=== PATIENT | female | born 1995 | race Caucasian/White ===

== ENCOUNTER → 2017-04-01 | Outpatient (CLI) | payer BC ==
[2017-04-01 20:01] LABS: MEAN CORPUSCULAR HGB CONC 35.2 g/dl (32.0-36.5); MEAN CORPUSCULAR VOLUME 93.9 fl (80.0-96.0); PLATELET COUNT, AUTOMATED 244 10^3/uL (150-450); RED CELL DISTRIBUTION WIDTH 11.7 % (11.5-14.5); WHITE BLOOD COUNT 8.1 10^3/uL (4.0-10.0)
[2017-04-01 20:20] LABS: ALBUMIN 4.1 GM/DL (3.2-5.2); ALBUMIN/GLOBULIN RATIO 1.32 (1.00-1.93); ALKALINE PHOSPHATASE 56 U/L (45-117); ALT/SGPT 34 U/L (12-78); ANION GAP 8 MEQ/L (8-16); AST/SGOT 14 U/L (7-37); BILIRUBIN,TOTAL 0.4 MG/DL (0.2-1.0); BLOOD UREA NITROGEN 14 MG/DL (7-18); CALCIUM LEVEL 8.6 MG/DL (8.5-10.1); CARBON DIOXIDE LEVEL 29 MEQ/L (21-32); CHLORIDE LEVEL 105 MEQ/L (98-107); CREATININE FOR GFR 0.73 MG/DL (0.55-1.02); FREE T4 1.12 NG/DL (0.76-1.46); GLOMERULAR FILTRATION RATE > 60.0 (>60); GLUCOSE, FASTING 134 MG/DL (70-105); POTASSIUM SERUM 4.2 MEQ/L (3.5-5.1); SODIUM LEVEL 142 MEQ/L (136-145); TOTAL PROTEIN 7.2 GM/DL (6.4-8.2)
== END ==
LOC: M SMT 14:32
PROVIDERS: ATTEND Physician Assistant Medical
DX: F41.1 Generalized anxiety disorder (principal); Z13.1 Encounter for screening for diabetes mellitus; R53.83 Other fatigue

== ENCOUNTER → 2017-04-11 | Outpatient (CLI) | payer BC ==
[2017-04-11 19:31] LABS: THYROID PEROXIDASE ANTIBODY > 1300.0 U/ML (<60.0)
[2017-04-11 19:35] LABS: FREE T4 1.15 NG/DL (0.76-1.46)
== END ==
LOC: M SMT 12:13
PROVIDERS: ATTEND Physician Assistant Medical
DX: R94.6 Abnormal results of thyroid function studies (principal)

== ENCOUNTER 2017-04-19 09:58 | Outpatient (CLI) | payer BC | END 2017-05-30 | LOC: M RAD 09:58 | DX: E03.9 Hypothyroidism, unspecified (principal) | CPT/HCPCS: A9516 ==

== ENCOUNTER → 2017-05-19 | Outpatient (CLI) | payer BC ==
[2017-05-19 19:13] LABS: FREE T4 0.69 NG/DL (0.76-1.46)
== END ==
LOC: M SMT 13:13
DX: R94.6 Abnormal results of thyroid function studies (principal)
CPT/HCPCS: 84443

== ENCOUNTER → 2017-06-01 | Outpatient (CLI) | payer BC ==
[2017-06-01 14:07] LABS: FREE T4 0.67 NG/DL (0.76-1.46)
== END ==
LOC: M SMT 12:03
DX: E06.0 Acute thyroiditis (principal)
CPT/HCPCS: 84443

== ENCOUNTER → 2017-06-27 | Outpatient (CLI) | payer BC ==
[2017-06-27 21:21] LABS: FREE T4 0.78 NG/DL (0.76-1.46)
== END ==
LOC: M LAB 19:49
DX: E06.0 Acute thyroiditis (principal)
CPT/HCPCS: 84443

== ENCOUNTER 2017-07-10 21:02 | Emergency (ER) | payer BC ==
[2017-07-10 23:28] LABS: VENOUS BASE EXCESS -3.3 (-2.0-2.0); VENOUS O2 SATURATION 99.3 % (60.0-80.0); VENOUS PARTIAL PRESSURE CO2 31.6 mmHg (38.0-50.0); VENOUS PARTIAL PRESSURE O2 185.8 mmHg (30.0-50.0)
[2017-07-10 23:32] LABS: BASO % 0.4 % (0.0-1.0); EOS # 0.1 10^3/uL (0.0-0.50); EOS % 0.5 % (0.0-3.0); HEMATOCRIT 39.6 % (36.0-47.0); HEMOGLOBIN 14.2 g/dl (12.0-16.0); IMMATURE GRANULOCYTE % 0.1 % (0-3.0); LYMPH # 3.3 10^3/uL (1.5-6.5); LYMPH % 35.5 % (24.0-44.0); MEAN CORPUSCULAR HEMOGLOBIN 32.1 pg (27.0-33.0); MEAN CORPUSCULAR HGB CONC 35.9 g/dl (32.0-36.5); MEAN CORPUSCULAR VOLUME 89.6 fl (80.0-96.0); MONO # 0.6 10^3/uL (0.0-0.8); MONO % 6.1 % (0.0-5.0); NEUTROPHILS # 5.3 10^3/uL (1.8-7.7); NEUTROPHILS % 57.4 % (36.0-66.0); PLATELET COUNT, AUTOMATED 244 10^3/uL (150-450); RED BLOOD COUNT 4.42 10^6/uL (4.00-5.40); RED CELL DISTRIBUTION WIDTH 12.1 % (11.5-14.5); WHITE BLOOD COUNT 9.3 10^3/uL (4.0-10.0)
[2017-07-10 23:44] LABS: INR 0.91; PROTHROMBIN TIME 12.3 SECONDS (12.4-14.5)
[2017-07-10 23:45] LABS: PARTIAL THROMBOPLASTIN TIME 26.8 SECONDS (26.8-37.9)
[2017-07-10] MEDS: MORPHINE 4 MG/ML 1ML VIAL (J2270) IV (23:45)
[2017-07-10] MEDS: NS 1,000 ML IV (23:45)
[2017-07-10 23:47] LABS: D-DIMER QUANT 277.4 ng/ml (<500)
[2017-07-11 00:22] LABS: ALBUMIN 4.3 GM/DL (3.2-5.2); ALBUMIN/GLOBULIN RATIO 1.43 (1.00-1.93); ALKALINE PHOSPHATASE 63 U/L (45-117); ALT/SGPT 20 U/L (12-78); ANION GAP 8 MEQ/L (8-16); AST/SGOT 19 U/L (7-37); BILIRUBIN,DIRECT 0.1 MG/DL (0.0-0.2); BILIRUBIN,TOTAL 0.3 MG/DL (0.2-1.0); BLOOD UREA NITROGEN 11 MG/DL (7-18); C REACTIVE PROTEIN QUANTITATIV < 0.30 MG/DL (0.00-0.30); CALCIUM LEVEL 8.8 MG/DL (8.5-10.1); CARBON DIOXIDE LEVEL 24 MEQ/L (21-32); CHLORIDE LEVEL 110 MEQ/L (98-107); CREATININE FOR GFR 0.73 MG/DL (0.55-1.30); FREE T4 0.75 NG/DL (0.76-1.46); GLOMERULAR FILTRATION RATE > 60.0 (>60); GLUCOSE, FASTING 96 MG/DL (70-100); LIPASE 143 U/L (73-393); POTASSIUM SERUM 3.8 MEQ/L (3.5-5.1); SODIUM LEVEL 142 MEQ/L (136-145); TOTAL PROTEIN 7.3 GM/DL (6.4-8.2)
[2017-07-11] MEDS ORDERED: METAL LOCK LOOP XX (00:47)
== END 2017-07-11 00:57 | disposition home or self-care (01) ==
LOC: M ED 07-11 00:57
DX: R07.89 Other chest pain (principal); E03.9 Hypothyroidism, unspecified; F41.9 Anxiety disorder, unspecified; F33.9 Major depressive disorder, recurrent, unspecified; Z82.49 Family history of ischemic heart disease and other diseases of the circulatory system; Z79.899 Other long term (current) drug therapy; Z87.891 Personal history of nicotine dependence
CPT/HCPCS: J2270

== ENCOUNTER → 2017-08-01 | Outpatient (CLI) | payer BC ==
[2017-08-01 20:07] LABS: FREE T4 0.89 NG/DL (0.76-1.46)
== END ==
LOC: M LAB 18:30
DX: E06.3 Autoimmune thyroiditis (principal)

== ENCOUNTER → 2017-10-05 | Outpatient (CLI) | payer BC ==
[2017-10-05 18:45] LABS: FREE T4 0.85 NG/DL (0.76-1.46)
== END ==
LOC: M SMT 13:10
DX: E06.3 Autoimmune thyroiditis (principal)

== ENCOUNTER → 2017-11-10 | Outpatient (REF) | payer BC | LOC: M LAB REF 18:26 | DX: L72.12 Trichodermal cyst (principal) | CPT/HCPCS: 88304 ==

== ENCOUNTER → 2018-02-08 | Outpatient (CLI) | payer BC ==
[2018-02-08 13:45] LABS: BASO % 0.4 % (0.0-1.0); EOS # 0.1 10^3/uL (0.0-0.50); HEMATOCRIT 43.2 % (36.0-47.0); HEMOGLOBIN 14.9 g/dl (12.0-15.5); IMMATURE GRANULOCYTE % 0.3 % (0-3.0); LYMPH # 2.2 10^3/uL (1.5-6.5); LYMPH % 31.3 % (24.0-44.0); MEAN CORPUSCULAR HEMOGLOBIN 32.3 pg (27.0-33.0); MEAN CORPUSCULAR HGB CONC 34.5 g/dl (32.0-36.5); MEAN CORPUSCULAR VOLUME 93.7 fl (80.0-96.0); MONO # 0.5 10^3/uL (0.0-0.8); MONO % 7.1 % (0.0-5.0); NEUTROPHILS # 4.1 10^3/uL (1.8-7.7); NEUTROPHILS % 59.9 % (36.0-66.0); PLATELET COUNT, AUTOMATED 239 10^3/uL (150-450); RED BLOOD COUNT 4.61 10^6/uL (4.00-5.40); RED CELL DISTRIBUTION WIDTH 12.4 % (11.5-14.5); WHITE BLOOD COUNT 6.9 10^3/uL (4.0-10.0)
[2018-02-08 15:12] LABS: TOTAL 25(OH) VITAMIN D 16.1 NG/ML (30.0-100.0)
== END ==
LOC: M SMT 10:25
DX: E06.3 Autoimmune thyroiditis (principal); R53.83 Other fatigue
CPT/HCPCS: 84443

== ENCOUNTER → 2018-03-09 | Outpatient (CLI) | payer BC | LOC: M RAD 07:36 | DX: R10.11 Right upper quadrant pain (principal) | CPT/HCPCS: 76705 ==

== ENCOUNTER → 2018-03-10 | Outpatient (CLI) | payer BC ==
[2018-03-10 13:56] LABS: BASO % 0.4 % (0.0-1.0); EOS # 0.1 10^3/uL (0.0-0.50); EOS % 0.7 % (0.0-3.0); HEMATOCRIT 43.2 % (36.0-47.0); HEMOGLOBIN 15.1 g/dl (12.0-15.5); IMMATURE GRANULOCYTE % 0.3 % (0-3.0); LYMPH # 2.3 10^3/uL (1.5-6.5); LYMPH % 33.1 % (24.0-44.0); MEAN CORPUSCULAR HEMOGLOBIN 32.5 pg (27.0-33.0); MEAN CORPUSCULAR VOLUME 92.9 fl (80.0-96.0); MONO # 0.5 10^3/uL (0.0-0.8); MONO % 7.6 % (0.0-5.0); NEUTROPHILS % 57.9 % (36.0-66.0); PLATELET COUNT, AUTOMATED 237 10^3/uL (150-450); RED BLOOD COUNT 4.65 10^6/uL (4.00-5.40); RED CELL DISTRIBUTION WIDTH 11.9 % (11.5-14.5)
[2018-03-10 15:29] LABS: ALBUMIN 4.3 GM/DL (3.2-5.2); ALBUMIN/GLOBULIN RATIO 1.43 (1.00-1.93); ALKALINE PHOSPHATASE 58 U/L (45-117); ALT/SGPT 28 U/L (12-78); AMYLASE 45 U/L (25-115); ANION GAP 8 MEQ/L (8-16); AST/SGOT 18 U/L (7-37); BILIRUBIN,TOTAL 0.5 MG/DL (0.2-1.0); BLOOD UREA NITROGEN 13 MG/DL (7-18); CARBON DIOXIDE LEVEL 27 MEQ/L (21-32); CHLORIDE LEVEL 104 MEQ/L (98-107); CREATININE FOR GFR 0.67 MG/DL (0.55-1.30); GLOMERULAR FILTRATION RATE > 60.0 (>60); GLUCOSE, FASTING 82 MG/DL (70-100); LIPASE 126 U/L (73-393); POTASSIUM SERUM 4.4 MEQ/L (3.5-5.1); SODIUM LEVEL 139 MEQ/L (136-145); TOTAL PROTEIN 7.3 GM/DL (6.4-8.2)
== END ==
LOC: M SMT 10:32
DX: R10.11 Right upper quadrant pain (principal)
CPT/HCPCS: 82150

== ENCOUNTER 2018-06-12 18:55 | Emergency (ER) | payer BC ==
[~2018-06-12] VITALS: Ht 152.4 cm; Wt 63.6 kg
[~2018-06-12 18:55] MED LIST: SERT-155; SERT25TA88; TRAZ-160
[2018-06-12] MEDS ORDERED: PRENMIS3 PO (19:16)
[2018-06-12] MEDS ORDERED: NS 1,000 ML IV ONE (19:30)
[2018-06-12 19:57] LABS: BASO % 0.3 % (0.0-1.0); EOS % 0.1 % (0.0-3.0); HEMATOCRIT 39.8 % (36.0-47.0); HEMOGLOBIN 14.1 g/dl (12.0-15.5); LYMPH # 3.1 10^3/uL (1.5-6.5); LYMPH % 27.2 % (24.0-44.0); MEAN CORPUSCULAR HEMOGLOBIN 32.8 pg (27.0-33.0); MEAN CORPUSCULAR HGB CONC 35.4 g/dl (32.0-36.5); MEAN CORPUSCULAR VOLUME 92.6 fl (80.0-96.0); MONO # 0.5 10^3/uL (0.0-0.8); MONO % 4.3 % (0.0-5.0); NEUTROPHILS # 7.8 10^3/uL (1.8-7.7); NEUTROPHILS % 67.8 % (36.0-66.0); PLATELET COUNT, AUTOMATED 225 10^3/uL (150-450); WHITE BLOOD COUNT 11.5 10^3/uL (4.0-10.0)
--- NOTE | 2018-06-12 21:10 | REPVR ---
EXAM: US First Trimester, Transabdominal EXAM DATE/TIME: 06/12/2018 8:17 PM CLINICAL HISTORY: 23 years old, female; Signs and symptoms; Lmp or gestational age (in weeks): 13; Antepartum complications; Bleeding; ; Additional info: Vag bleeding, 13wks preg TECHNIQUE: Real-time transabdominal obstetrical ultrasound of the maternal pelvis and a first trimester , less than 14 weeks 0 days, with image documentation. COMPARISON: Pelvis, limited US 05/11/2013 4:42 PM FINDINGS: GESTATION: Gestation: Single intrauterine fetus. Heart rate: heart rate of 149 beats per minute and motion is observed. Placenta: Small subchorionic hemorrhage measuring 17 x 38 x 16 mm on the left. Anterior placenta. Amniotic fluid: Amniotic and chorionic fluid are normal for gestational age. BIOMETRY: [place]-Rump length: [place]-rump length of 6.8 cm suggesting an age of 13 weeks 0 days. The EDC is 12/18/2018. MATERNAL: Uterus: The uterus measures 13.5 cm in its cephalocaudad dimension and 8.7 x 9.3 cm in its AP and lateral dimensions. Cervix: Unremarkable. Right adnexa: Unremarkable. Left adnexa: Unremarkable. Intraperitoneal: No intraperitoneal free fluid. IMPRESSION: 1. Single live intrauterine fetus with estimated age of 13 weeks 0 days. The EDC is 12/18/2018. 2. Small subchorionic hemorrhage on the left measuring 17 x 38 x 16 mm. Electronically signed by: Dalton Kapoor On 06/12/2018 21:10:05 PM
[2018-06-12 21:22] VITALS: BP 117/70
== END 2018-06-12 21:30 | disposition home or self-care (01) ==
LOC: M ED 18:55
DX: O20.8 Other hemorrhage in early pregnancy (principal); Z3A.13 13 weeks gestation of pregnancy; Z79.899 Other long term (current) drug therapy

== ENCOUNTER → 2018-06-22 | Outpatient (CLI) | payer BC ==
[~2018-06-22] MED LIST changes: +PRENMIS3 PO
[2018-06-22 13:40] LABS: BASO % 0.3 % (0.0-1.0); EOS % 0.1 % (0.0-3.0); HEMATOCRIT 38.3 % (36.0-47.0); HEMOGLOBIN 13.7 g/dl (12.0-15.5); LYMPH # 1.8 10^3/uL (1.5-6.5); LYMPH % 19.8 % (24.0-44.0); MEAN CORPUSCULAR HEMOGLOBIN 32.5 pg (27.0-33.0); MEAN CORPUSCULAR HGB CONC 35.8 g/dl (32.0-36.5); MEAN CORPUSCULAR VOLUME 90.8 fl (80.0-96.0); MONO # 0.4 10^3/uL (0.0-0.8); MONO % 4.6 % (0.0-5.0); NEUTROPHILS # 6.9 10^3/uL (1.8-7.7); NEUTROPHILS % 74.9 % (36.0-66.0); PLATELET COUNT, AUTOMATED 225 10^3/uL (150-450); RED BLOOD COUNT 4.22 10^6/uL (4.00-5.40); WHITE BLOOD COUNT 9.2 10^3/uL (4.0-10.0)
[2018-06-22 13:55] LABS: FREE T4 1.22 NG/DL (0.76-1.46)
[2018-06-22 14:47] LABS: CHLAMYDIA DNA AMPLIFICATION NEGATIVE (NEGATIVE); GC DNA AMPLIFICATION NEGATIVE (NEGATIVE)
[2018-06-23 13:03] LABS: RUBELLA IgG QUALITATIVE IMMUNE (IMMUNE)
[2018-06-23 13:32] LABS: HIV 1&2 SCREEN CENTAUR NEGATIVE (NEGATIVE)
== END ==
LOC: M SMT 11:17
PROVIDERS: ATTEND Advanced Practice Midwife
DX: Z34.82 Encounter for supervision of other normal pregnancy, second trimester (principal); Z36.89 Encounter for other specified antenatal screening

== ENCOUNTER → 2018-07-17 | Outpatient (CLI) | payer BC ==
--- NOTE | 2018-07-17 19:18 | REP ---
Clinical: Anatomical evaluation. Comparison: 06/12/2018. Findings: Examination demonstrates a single live intrauterine in cephalic presentation. motion is identified by technologist. Placenta is noted right fundal and grade 1. There is a triangular echogenic focus which covers the cervical os which is of uncertain significance but possibilities include debris/particulate matter as well as possible placental tissue. Amniotic fluid volume is normal. Cervix measures 5.1 cm in length and appears closed. No evidence for nuchal cord. Gestational age by LMP 18 weeks 4 days with MILAGRO 12/14/2018 . Gestational age by current measurements 18 weeks 2 days with MILAGRO 12/16/2018 . FHR equals 139 beats per minute. BPD 4.4 cm 19 weeks 2 days HC 15.4 cm 18 weeks 2 days AC 12.7 cm 18 weeks 2 days FL 2.7 cm 18 weeks 0-day HL 2.9 cm 19 weeks 2 days HC/AC ratio 1.21 Estimated weight 229 grams ( 32nd percentile). Anatomical assessment demonstrates normal structures including cranium, choroid plexus, cavum, cerebellum/posterior fossa, facial features, lungs, four-chamber heart, diaphragm, stomach, cord insertion/three-vessel cord, kidneys/bladder, and upper extremities. Limited evaluation of the cardiac ventricular outflow tracts, spine, and lower extremities. Impression: 1. Single live intrauterine in cephalic presentation demonstrating appropriate interval growth. 2. Echogenic focus overlying the close cervical os as noted above. Differential diagnosis must include placental tissue and warrants reevaluation. 3. Anatomical limitations as noted above warrant reevaluation. Electronically Signed by Nabeel Damon MD 07/17/2018 07:09 P
== END ==
LOC: M SMT 07:59
PROVIDERS: ATTEND Advanced Practice Midwife
DX: Z36.89 Encounter for other specified antenatal screening (principal); Z3A.18 18 weeks gestation of pregnancy

== ENCOUNTER → 2018-08-10 | Outpatient (CLI) | payer BC ==
--- NOTE | 2018-08-10 17:29 | REP ---
OB ULTRASOUND: Real-time sonographic evaluation of the gravid uterus is performed utilizing transabdominal and endovaginal technique. There is a single living intrauterine gestation. The estimated gestational age is 22 weeks 0 days, EDC 12/14/2018. Today's measurements indicate appropriate growth. BPD 56 mm = 23 weeks 1 day, at the 81st percentile. HC 202 mm = 22 weeks 3 days, at the 61st percentile. AC 174 mm = 22 weeks 3 days, at the 58th percentile. Femur length 36 mm = 21 weeks 2 days, at the 32nd percentile. HC/AC ratio 1.16 within normal range. Estimated weight 466 grams at the 45th percentile. Cervix is closed and measures 4.3 cm in length. heart rate 153 beats per minute. SEEN/GROSSLY UNREMARKABLE Lateral ventricles Yes Posterior fossa Yes Upper lip No Four-chamber heart Yes LVOT Yes RVOT Yes Stomach Yes Cord insertion Yes Three vessel cord No Kidneys Yes Bladder No Spine Yes position: Vertex. Placenta: Fundal and to the right grade 1 with no previa or abruption. Amniotic fluid: Within normal limits. Previously noted echogenic focus in the region of the internal cervical os is not seen on today's imaging. Electronically Signed by Josiah Anthony MD 08/11/2018 03:30 P
== END ==
LOC: M SMT 13:07
PROVIDERS: ATTEND Advanced Practice Midwife
DX: Z34.82 Encounter for supervision of other normal pregnancy, second trimester (principal); Z3A.22 22 weeks gestation of pregnancy

== ENCOUNTER → 2018-09-12 | Outpatient (CLI) | payer MEDICAID ==
[2018-09-12 13:37] LABS: BASO % 0.3 % (0.0-1.0); EOS % 0.2 % (0.0-3.0); HEMATOCRIT 36.7 % (36.0-47.0); HEMOGLOBIN 12.4 g/dl (12.0-15.5); LYMPH # 1.5 10^3/uL (1.5-6.5); LYMPH % 12.4 % (24.0-44.0); MEAN CORPUSCULAR HEMOGLOBIN 32.7 pg (27.0-33.0); MEAN CORPUSCULAR HGB CONC 33.8 g/dl (32.0-36.5); MEAN CORPUSCULAR VOLUME 96.8 fl (80.0-96.0); MONO # 0.4 10^3/uL (0.0-0.8); MONO % 3.5 % (0.0-5.0); NEUTROPHILS % 83.2 % (36.0-66.0); PLATELET COUNT, AUTOMATED 184 10^3/uL (150-450); RED BLOOD COUNT 3.79 10^6/uL (4.00-5.40)
== END ==
LOC: M SMT 08:50
PROVIDERS: ATTEND Specialist
DX: O99.342 Other mental disorders complicating pregnancy, second trimester (principal); Z3A.00 Weeks of gestation of pregnancy not specified

== ENCOUNTER → 2018-09-29 | Outpatient (CLI) | payer MEDICAID | LOC: M LAB 07:01 | PROVIDERS: ATTEND Obstetrics & Gynecology | DX: O99.282 Endocrine, nutritional and metabolic diseases complicating pregnancy, second trimester (principal); Z3A.00 Weeks of gestation of pregnancy not specified ==

== ENCOUNTER → 2018-11-01 | Outpatient (CLI) | payer BC, MEDICAID ==
[~2018-11-01] MED LIST changes: -TRAZ-160; +TRAZ-252
[2018-11-01 14:04] LABS: FREE T4 0.85 NG/DL (0.76-1.46); THYROID STIMULATING HORMONE 0.839 uIU/ML (0.358-3.740)
== END ==
LOC: M SMT 10:35
PROVIDERS: ATTEND Advanced Practice Midwife
DX: O99.283 Endocrine, nutritional and metabolic diseases complicating pregnancy, third trimester (principal); Z3A.00 Weeks of gestation of pregnancy not specified

== ENCOUNTER → 2018-11-21 | Outpatient (REF) | payer BC, MEDICAID | LOC: M LAB REF 17:25 | PROVIDERS: ATTEND Advanced Practice Midwife | DX: Z34.83 Encounter for supervision of other normal pregnancy, third trimester (principal); Z3A.00 Weeks of gestation of pregnancy not specified ==

== ENCOUNTER → 2018-11-30 | Outpatient (CLI) | payer BC, MEDICAID | LOC: M SMT 09:12 | PROVIDERS: ATTEND Advanced Practice Midwife | DX: Z34.83 Encounter for supervision of other normal pregnancy, third trimester (principal); Z3A.00 Weeks of gestation of pregnancy not specified ==

== ENCOUNTER 2018-12-10 12:02 | Inpatient (IN) | payer BC, MEDICAID ==
[~2018-12-10] VITALS: Ht 152.4 cm; Wt 73.8 kg
[2018-12-10] VITALS (18 sets, daily range): BP systolic 117–149; BP diastolic 68–97
[~2018-12-10 12:02] MED LIST changes: +LEVOTHYROXINE 25MCG TABLET (0.025MG) PO SCH
[2018-12-10] MEDS ORDERED: LACTATED RINGER'S 1000 ML IV STA (13:25)
[2018-12-10] MEDS ORDERED: LR 1,000 ML IV SCH (13:25)
[2018-12-10] MEDS ORDERED: PENICILLIN G POTASSIUM IV 5 MU in D5W MINI-BAG PLUS 100 ML IV STA (13:25)
--- NOTE | 2018-12-10 13:31 | NUR ---
L&D H&P HPI: 23 year old at 39+3 weeks estimated gestation. Expected date of confinement: 12/14/18. dated by LMP c/w first TM US. Presents today with complaint of LOF 2-3 hours prior to presentation. Denies vaginal bleeding, or uterine contractions. Reports regular movement. course uncomplicated See PMH labs: Blood type O+, antibody screen negative, rubella immune, VDRL nonreactive , hepatitis B surface antigen negative, HIV negative, hepatitis C antibody negative, GC/CT negative, aneuploidy/maternal serum screening: offered/declined, 1 hour glucose challenge test: 149, 3 hour glucose tolerance test:80,163,121,118. GBS positive Radiology/OB US: no anomalies or placental abnormalities detected. History Past medical history: Depression/anxiety, Rochelle's Thyroiditis/hypothyroidism Surgical history: none Medications: PNV, Levothyroxine 25mcg daily Allergies: NKDA TUNNELLER history: no STI/gHSV OB history: G1, 2010: 39 weeks . G2, 2012: 39 weeks , G3, 2013: SAB Social history: no t/e/d Family history: no MR,VTE Objective Vitals: Normotensive, normal heart rate, afebrile Heart: Regular rate and rhythm. No murmurs, rubs or gallops. Lungs: Clear to auscultation bilaterally. No wheezes, crackles, rales or rhonchi. Abdomen: Uterine fundal height consistent with dates. No guarding or rebound tenderness. Extremities: No clubbing, cyanosis or edema. Normal deep tendon reflexes. Sterile vaginal exam: 3 cm, 75 %effacement, -3 station, cephalic, intact External monitoring: heart rate category 1 Tocodynamometer: contractions occurring intermittently Assessment/Plan 23 year old at 39+2 weeks gestation. Diagnosis: PROM at term. Reassuring and maternal status. -Admit to labor and delivery with routine labs and orders -External monitoring and tocodynamometer -Pediatrics and anesthesia consultations as needed. -GBS prophylaxis with IV penicillin -Augment labor/active management with Pitocin Dr. Jamie Portillo, DO, FACOG
[2018-12-10] MEDS ORDERED: OXYTOCIN 30 UNITS IN 0.9% NaCl 500ML IV BAG (J2590) As Ordered ONE (13:50)
[2018-12-10 13:55] LABS: HEMATOCRIT 34.4 % (36.0-47.0); HEMOGLOBIN 11.6 g/dl (12.0-15.5); MEAN CORPUSCULAR HGB CONC 33.7 g/dl (32.0-36.5); PLATELET COUNT, AUTOMATED 215 10^3/uL (150-450); RED BLOOD COUNT 3.74 10^6/uL (4.00-5.40); WHITE BLOOD COUNT 9.8 10^3/uL (4.0-10.0)
[2018-12-10] MEDS ORDERED: OXYTOCIN DRIP 30 UNITS in APPROPRIATE DILUENT 1 EA IV SCH (14:00)
[2018-12-10] MEDS: PENICILLIN G POTASSIUM IV 2.5 MU in APPROPRIATE DILUENT 1 EA IV SCH ×2 (17:34→22:00)
[2018-12-10] MEDS ORDERED: EPIDURAL/PCA KEYS XX PRN (21:17)
[2018-12-10] MEDS ORDERED: ePHEDrine SULFATE 25 MG/5 ML(5MG/ML) SYRINGE IV PRN (21:17)
[2018-12-10] MEDS ORDERED: FENTANYL/ROPIVACAINE/NACL BAG 100 ML EPIDURAL SCH (21:17)
[2018-12-10] MEDS ORDERED: REFRIGERATOR IV KEYS XX PRN (21:17)
[2018-12-10] MEDS ORDERED: NALOXONE INJ 0.4 MG/1 ML VIAL (J2310) IV PRN (21:17)
[2018-12-10] MEDS ORDERED: EPIDURAL COMMENT XX SCH (21:17)
[2018-12-10] MEDS ORDERED: ONDANSETRON 4MG/2ML VIAL (J2405) IV PRN (21:17)
[2018-12-10] MEDS ORDERED: diphenhydrAMINE INJ 50MG/ML VIAL (J1200) IV PRN (21:17)
--- NOTE | 2018-12-10 21:20 | NUR ---
Progress Note Pt coping well with pain. No VB Cat I FHR SVE: /-2 [place]: ctxs every 3-5 min; pit at 16mU/min A/P: Early active labor with Pitocin augmentation. Reassuring maternal and status. -Continue with Pitocin Tony Portillo DO
[2018-12-10] MEDS ORDERED: FENTANYL 2MCG/ML ROPIVACAINE 0.2% IN 0.9% NACL 100ML IVBAG As Ordered ONE (21:29)
[2018-12-11] VITALS (13 sets, daily range): BP systolic 107–140; BP diastolic 61–79
--- NOTE | 2018-12-11 00:45 | NUR ---
Progress Note Pt comfortable with epidural. +LOF during epidural placement. +VB VSS,normotensive, normal HR, afebrile SVE: 7/C/0 FSE/IUPC placed FHR: Cat I [place]: ctxs q 2-4min; Pit at 20mU/min Active labor. Reassuring maternal and status. Continue with Pitocin Tony Portillo,
[2018-12-11] MEDS: PENICILLIN G POTASSIUM IV 2.5 MU in APPROPRIATE DILUENT 1 EA IV SCH (03:09)
--- NOTE | 2018-12-11 03:48 | NUR ---
Progress Note Comfortable. No heavy VB. VSS/af SVE: c/c/+2 EFM: Cat I [place]: ctxs every 2-4min; Pit at 20mU/min A/P: Second stage of labor. Reassuring maternal and status. -start maternal pushing efforts. Tony Portillo DO
[2018-12-11] MEDS ORDERED: OXYTOCIN DRIP 30 UNITS in APPROPRIATE DILUENT 1 EA IV SCH (04:28)
[2018-12-11] MEDS: LR 1,000 ML IV SCH ×3 (04:28→20:28)
[2018-12-11] MEDS ORDERED: PROMETHAZINE 25 MG TAB PO PRN (04:30)
[2018-12-11] MEDS ORDERED: RHOGAM 300 MCG (1500 IU) INJ (J2790) IM SCH (04:30)
[2018-12-11] MEDS ORDERED: ACETAMINOPHEN TAB 650MG DOSE (2X325MG) PO PRN (04:30)
[2018-12-11] MEDS ORDERED: DOCUSATE SODIUM 100 MG CAP PO PRN (04:30)
[2018-12-11] MEDS ORDERED: ONDANSETRON 4MG/2ML VIAL (J2405) IV PRN (04:30)
[2018-12-11] MEDS ORDERED: DIBUCAINE 1% OINTMENT 30GM TOP PRN (04:30)
[2018-12-11] MEDS ORDERED: IBUPROFEN 600 MG TAB PO PRN (04:30)
[2018-12-11] MEDS ORDERED: MEASLES,MUMPS,RUBELLA VACCINE INJ (MMR-II) (90707) SC SCH (04:30)
[2018-12-11 04:42] LABS: CORD GAS ABE V -5.1; CORD GAS O2 SAT V 76.5 %; CORD GAS PCO2 V 37.7 mmHg; CORD GAS PH V 7.342 UNITS; CORD GAS PO2 V 34.2 mmHg; CORD GAS SBC V 19.8 MEQ/L; CORD GAS TCO2 V 21.1 MEQ/L
[2018-12-11 04:44] LABS: CORD GAS ABE A -3.2; CORD GAS HCO3 A 25.1 MEQ/L; CORD GAS O2 SAT A 65.1 %; CORD GAS PCO2 A 56.5 mmHg; CORD GAS PH A 7.265 UNITS; CORD GAS PO2 A 29.8 mmHg; CORD GAS TCO2 A 26.8 MEQ/L
--- NOTE | 2018-12-11 04:44 | NUR ---
Delivery note Spontaneous vaginal delivery Estimated gestational age at delivery: 39+3 weeks The active phase and second stage of labor progressed in normal fashion with epidural anesthesia. Patient received Pitocin labor augmentation. She received a full course of GBS prophylaxis. The head delivered left occiput anterior and restituted left occiput transverse. No nuchal cord was noted. The anterior shoulder did not deliver with gentle downward guidance. A shoulder dystocia was announced and initial maneuvers were activated by immediately placing the patient in [place], and suprapubic pressure was applied. Initially, this did not resolve the dystocia. The anterior shoulder was rotated anteriorly in a counterclockwise motion. Another attempt at suprapubic, [place], and gentle downward guidance achieved delivery of the anterior shoulder. Total dystocia time <1 min. The remainder of the body delivered with ease. Cord clamping was delayed for approximately 1 minute after delivery. After doubly clamping the cord, I cut the cord. The was placed on the patient's chest for immediate bonding. data: Apgars 7 and 8 . weight 4000 grams 8 pounds, 13 ounces. Time of delivery: 0431. Sex: Male. Cord gases: arterial pH 7.265/-3.2, venous 7.342/-5.1 The third stage of labor was actively managed with a bolus of IV Pitocin (30 units in 500 mL of normal saline). The placenta delivered completely intact with no missing cotyledons at 0432 . A three-vessel cord with a central insertion was noted. After delivery of the placenta, the uterine fundus was approximately 2 cm below the umbilicus and firm. IV Pitocin was continued to maintain uterine tone. A normal, low level of uterine bleeding was noted. The cervix, vagina, vulva and perineum were inspected for lacerations. No laceration was noted. Excellent hemostasis was noted. Estimated blood loss: 200ml. Movement and reflex of the right upper extremity diminished compared to left. No crepitus appreciated. All sponges, needles, and instruments were accounted for per [employer] department protocol. Jamie Portillo D.O., F.[email or web address].Marylou.
[2018-12-11] MEDS: PRENATAL VITAMINS CHEWABLE TABLET PO SCH (07:39)
[2018-12-11] MEDS: IBUPROFEN 800 MG TAB PO PRN (16:49)
[2018-12-12] MEDS: LR 1,000 ML IV SCH ×2 (04:28→12:28)
[2018-12-12 06:36] VITALS: BP 117/72
[2018-12-12] MEDS ORDERED: IBUP80TA PO (08:30)
[2018-12-12] MEDS ORDERED: ACET-683 PO (08:30)
[2018-12-12] MEDS: PRENATAL VITAMINS CHEWABLE TABLET PO SCH (08:34)
[2018-12-12] MEDS: ACETAMINOPHEN 500 MG TAB PO PRN ×3 (08:36→20:17)
[2018-12-12] MEDS: IBUPROFEN 800 MG TAB PO PRN (12:49)
[2018-12-12 18:05] VITALS: BP 110/58
[2018-12-13] MEDS: IBUPROFEN 800 MG TAB PO PRN (05:33)
[2018-12-13 06:00] VITALS: BP 116/58
[2018-12-13] MEDS: PRENATAL VITAMINS CHEWABLE TABLET PO SCH (08:32)
[2018-12-13] MEDS: ACETAMINOPHEN 500 MG TAB PO PRN (08:33)
== END 2018-12-13 12:30 | disposition home or self-care (01) | DRG 560 ==
LOC: M LDO 12:02 → M LDI 12:34 → M OBS 12-11 06:43
PROVIDERS: ADMIT Obstetrics & Gynecology; ATTEND Obstetrics & Gynecology
PROC: 10E0XZZ Delivery of Products of Conception, External Approach (ICD-10-PCS; principal; 2018-12-10)
DX: O42.02 Full-term premature rupture of membranes, onset of labor within 24 hours of rupture (principal); O99.824 Streptococcus B carrier state complicating childbirth; Z3A.39 39 weeks gestation of pregnancy; Z37.0 Single live birth; O66.0 Obstructed labor due to shoulder dystocia; O99.284 Endocrine, nutritional and metabolic diseases complicating childbirth; E03.9 Hypothyroidism, unspecified

== ENCOUNTER → 2019-02-07 | Outpatient (CLI) | payer MEDICAID ==
[~2019-02-07] MED LIST changes: +ACET-683 PO; +IBUP80TA PO; -LEVOTHYROXINE 25MCG TABLET (0.025MG) PO SCH
[2019-02-07 17:53] LABS: FREE T4 3.28 NG/DL (0.76-1.46); THYROID STIMULATING HORMONE 0.006 uIU/ML (0.358-3.740)
== END ==
LOC: M SMT 14:44
PROVIDERS: ATTEND Obstetrics & Gynecology
DX: E06.9 Thyroiditis, unspecified (principal)

== ENCOUNTER 2019-09-03 17:54 | Emergency (ER) | payer MEDICAID, OTHER ==
[~2019-09-03] VITALS: Ht 152.4 cm; Wt 64.9 kg
[~2019-09-03 17:54] MED LIST changes: -SERT-155; +SERT25TA21; -SERT25TA88; +SERT50TA29
[2019-09-03] MEDS ORDERED: PERCOCET 5MG/325MG TAB PO ONE (18:15)
[2019-09-03] MEDS ORDERED: PERC5TAB12 PO (19:03)
[2019-09-03 19:10] VITALS: BP 152/100
--- NOTE | 2019-09-03 23:54 | REP ---
SACRUM AND COCCYX: Three views of sacrum and coccyx performed and demonstrate no definite fracture, dislocation, or intrinsic bone disease. AP views are limited by overlying bowel gas. IMPRESSION: No definite fracture or dislocation. Electronically Signed by Josiah Anthony MD 09/04/2019 04:55 P
== END 2019-09-03 19:12 | disposition home or self-care (01) ==
LOC: M ED 17:54
DX: S30.0XXA Contusion of lower back and pelvis, initial encounter (principal); W19.XXXA Unspecified fall, initial encounter; Y93.59 Activity, other involving other sports and athletics played individually; Y92.9 Unspecified place or not applicable; K85.90 Acute pancreatitis without necrosis or infection, unspecified; E03.9 Hypothyroidism, unspecified

== ENCOUNTER → 2020-07-16 | Outpatient (REF) | payer OTHER ==
[~2020-07-16] MED LIST changes: +PERC5TAB12 PO
== END ==
LOC: M SFHCWAGY 17:37
PROVIDERS: ATTEND Obstetrics & Gynecology
DX: Z12.4 Encounter for screening for malignant neoplasm of cervix (principal)

== ENCOUNTER → 2022-06-29 | Outpatient (REF) | payer OTHER | LOC: M SFHCWAGY 17:14 | PROVIDERS: ATTEND Obstetrics & Gynecology | DX: Z12.4 Encounter for screening for malignant neoplasm of cervix (principal) ==

== ENCOUNTER → 2022-08-04 | Outpatient (CLI) | payer OTHER ==
[2022-08-04 12:52] LABS: BASO % 0.5 % (0.0-1.0); EOS # 0.1 10^3/uL (0.0-0.5); EOS % 1.9 % (0.0-3.0); HEMATOCRIT 43.9 % (36.0-47.0); HEMOGLOBIN 14.9 g/dl (12.0-15.5); LYMPH # 2.5 10^3/uL (1.5-5.0); LYMPH % 32.8 % (24.0-44.0); MEAN CORPUSCULAR HEMOGLOBIN 31.4 pg (27.0-33.0); MEAN CORPUSCULAR HGB CONC 33.9 g/dl (32.0-36.5); MEAN CORPUSCULAR VOLUME 92.4 fl (80.0-96.0); MONO # 0.5 10^3/uL (0.0-0.8); NEUTROPHILS # 4.4 10^3/uL (1.5-8.5); NEUTROPHILS % 58.5 % (36.0-66.0); PLATELET COUNT, AUTOMATED 265 10^3/uL (150-450); RED BLOOD COUNT 4.75 10^6/uL (4.00-5.40); WHITE BLOOD COUNT 7.5 10^3/uL (4.0-10.0)
[2022-08-04 13:10] LABS: HEMOGLOBIN A1c 5.3 % (4.0-6.0)
[2022-08-04 13:13] LABS: ALBUMIN 4.1 G/DL (3.2-5.2); ALKALINE PHOSPHATASE 69 U/L (46-116); ALT/SGPT 18 U/L (7.0-40); AST/SGOT 14 U/L (<34); BILIRUBIN,TOTAL 0.5 MG/DL (0.3-1.2); BLOOD UREA NITROGEN 13 MG/DL (9-23); CALCIUM LEVEL 9.2 MG/DL (8.5-10.1); CARBON DIOXIDE LEVEL 28 MMOL/L (20-31); CHLORIDE LEVEL 105 MMOL/L (98-107); CHOLESTEROL LEVEL 161 MG/DL (<200); CHOLESTEROL RISK RATIO 2.19 (<5); CREATININE FOR GFR 0.56 MG/DL (0.55-1.30); GLOMERULAR FILTRATION RATE > 60.0 (>60); GLUCOSE, FASTING 123 MG/DL (60-100); HDL CHOLESTEROL 73.3 MG/DL (>40); LDL CHOLESTEROL 67.5 MG/DL (<100); NON-HDL-C 87.7 MG/DL; POTASSIUM SERUM 4.2 MMOL/L (3.5-5.1); SODIUM LEVEL 140 MMOL/L (136-145); TOTAL PROTEIN 6.7 G/DL (5.7-8.2); TRIGLYCERIDES LEVEL 101 MG/DL (<150)
[2022-08-04 13:18] LABS: FREE T4 1.05 NG/DL (0.89-1.76)
[2022-08-04 13:19] LABS: THYROID STIMULATING HORMONE 2.493 uIU/ML (0.55-4.78)
[2022-08-04 13:20] LABS: TOTAL 25(OH) VITAMIN D 14.1 NG/ML (20.0-100.0)
== END ==
LOC: M LAB 11:49
PROVIDERS: ATTEND Physician Assistant
DX: E06.3 Autoimmune thyroiditis (principal)

== ENCOUNTER → 2023-03-26 | Outpatient (REF) | payer OTHER ==
[2023-03-26 19:55] LABS: APPEARANCE, URINE CLEAR (CLEAR); BACTERIA, URINE AUTO 1+ (NEGATIVE); BILIRUBIN, URINE AUTO NEGATIVE (NEGATIVE); BLOOD, URINE BLOOD 2+ (NEGATIVE); COLOR, URINE AMBER (YELLOW); GLUCOSE, URINE (UA) AUTO NEGATIVE (NEGATIVE); KETONE, URINE AUTO NEGATIVE (NEGATIVE); LEUKOCYTE ESTERASE, URINE AUTO 2+ (NEGATIVE); MUCUS, URINE SMALL (NEGATIVE); NITRITE, URINE AUTO POSITIVE (NEGATIVE); PROTEIN, URINE AUTO 1+ mg/dL (NEGATIVE); RBC, URINE AUTO 58 /HPF (0-3); SPECIFIC GRAVITY URINE AUTO 1.006 (1.002-1.035); SQUAMOUS EPITHELIAL CELL UR AU 7 /HPF (0-6); WBC, URINE AUTO 40 /HPF (0-3)
== END ==
LOC: M LAB REF 19:27
PROVIDERS: ATTEND Physician Assistant Medical
DX: N39.0 Urinary tract infection, site not specified (principal)

== ENCOUNTER 2023-04-13 08:16 | Day surgery (SDC) | payer OTHER ==
[~2023-04-13] VITALS: Ht 154.9 cm; Wt 71.9 kg
[~2023-04-13 08:16] MED LIST changes: +BUPR150T12 PO; +BUSP1TAB PO; +ERGO500029 PO; +ESTA0.25; +LR 1,000 ML IV SCH; +SERT50TA29 PO
[2023-04-13] MEDS ORDERED: VITMTA PO (08:31)
[2023-04-13] MEDS ORDERED: LR 1,000 ML IV SCH (08:40)
[2023-04-13 08:46] LABS: HEMATOCRIT 41.3 % (36.0-47.0); HEMOGLOBIN 14.4 g/dl (12.0-15.5); MEAN CORPUSCULAR HEMOGLOBIN 32.5 pg (27.0-33.0); MEAN CORPUSCULAR HGB CONC 34.9 g/dl (32.0-36.5); MEAN CORPUSCULAR VOLUME 93.2 fl (80.0-96.0); PLATELET COUNT, AUTOMATED 285 10^3/uL (150-450); RED BLOOD COUNT 4.43 10^6/uL (4.00-5.40); WHITE BLOOD COUNT 5.7 10^3/uL (4.0-10.0)
[2023-04-13] MEDS ORDERED: fentaNYL 100 MCG/2 ML INJECTION As Ordered ONE (09:44)
[2023-04-13] MEDS ORDERED: LIDOCAINE 2% 100MG/5ML SDV (FOR ANES.) As Ordered ONE (09:44)
[2023-04-13] MEDS ORDERED: propofoL 200 MG/20 ML VIAL As Ordered ONE (09:44)
[2023-04-13] MEDS ORDERED: KETOROLAC 60MG 2ML VIAL As Ordered ONE (09:44)
[2023-04-13] MEDS ORDERED: ONDANSETRON 4MG 2ML VIAL As Ordered ONE (09:44)
[2023-04-13] MEDS ORDERED: ROCURONIUM BROMIDE 50MG/5ML VIAL As Ordered ONE (09:44)
[2023-04-13] MEDS ORDERED: MIDAZOLAM INJ 2MG/2ML VIAL As Ordered ONE (09:44)
[2023-04-13] MEDS ORDERED: SUGAMMADEX SODIUM 500 MG/5 ML VIAL (BRIDION) As Ordered ONE (09:44)
[2023-04-13] MEDS ORDERED: SEVOFLURANE INHAL SOLN 250 ML BTL As Ordered ONE (10:28)
[2023-04-13] MEDS ORDERED: SILVER NITRATE APPLICATOR (1 = QTY 10) As Ordered ONE (10:29)
[2023-04-13] MEDS ORDERED: ACETAMINOPHEN 1000MG 100ML IV BAG As Ordered ONE (11:42)
[2023-04-13] MEDS ORDERED: dexmedeTOMIDine (4MCG/ML)200MCG/50ML BTL (PRECEDEX) As Ordered ONE (11:42)
[2023-04-13] MEDS ORDERED: HYDROmorphone HCL 2MG/ML 1ML VIAL As Ordered ONE (12:07)
[2023-04-13] MEDS ORDERED: fentaNYL 100 MCG/2 ML INJECTION IV PRN (12:25)
[2023-04-13] MEDS ORDERED: MORPHINE 2 MG/ML 1ML VIAL IV PRN (12:25)
[2023-04-13] MEDS ORDERED: oxyCODONE 5MG TAB PO PRN (12:25)
[2023-04-13] MEDS ORDERED: ONDANSETRON 4MG 2ML VIAL IV PRN (12:25)
[2023-04-13] MEDS ORDERED: PERC5TAB12 PO (12:42)
[2023-04-13] MEDS ORDERED: IBUP80TA PO (12:43)
[2023-04-13] MEDS ORDERED: COLA100C5 PO (12:44)
[2023-04-13 13:08] LABS: URINE PREG TEST NEGATIVE (NEGATIVE)
[2023-04-13] MEDS ORDERED: PROMETHAZINE 25MG/ML 1ML VIAL IV ONE (14:00)
[2023-04-13 15:05] VITALS: BP 122/71; TEMP 98; O2SAT 96
== END 2023-04-13 15:08 | disposition home or self-care (01) ==
LOC: M SDC 08:16
PROVIDERS: ATTEND Obstetrics & Gynecology
DX: Z30.2 Encounter for sterilization (principal); E06.3 Autoimmune thyroiditis; Z79.899 Other long term (current) drug therapy; F32.A Depression, unspecified; F41.9 Anxiety disorder, unspecified
CPT/HCPCS: 36415; 58661; 84702; 84703; 85027; 86850; 86900; 86901; 88302; J0131; J0665; J1100; J1170; J1885; J2250; J2405; J2550; J3010

== ENCOUNTER → 2023-08-09 | Outpatient (CLI) | payer OTHER ==
[~2023-08-09] MED LIST changes: +COLA100C5 PO; -LR 1,000 ML IV SCH; +VITMTA PO
[2023-08-09 10:29] LABS: BASO # 0.1 10^3/uL (0.0-0.2); BASO % 0.5 % (0.0-1.0); EOS # 0.1 10^3/uL (0.0-0.5); EOS % 0.6 % (0.0-3.0); HEMATOCRIT 42.3 % (36.0-47.0); HEMOGLOBIN 14.6 g/dl (12.0-15.5); LYMPH # 2.2 10^3/uL (1.5-5.0); LYMPH % 20.9 % (24.0-44.0); MEAN CORPUSCULAR HEMOGLOBIN 32.3 pg (27.0-33.0); MEAN CORPUSCULAR HGB CONC 34.5 g/dl (32.0-36.5); MEAN CORPUSCULAR VOLUME 93.6 fl (80.0-96.0); MONO # 0.6 10^3/uL (0.0-0.8); MONO % 5.3 % (2.0-8.0); NEUTROPHILS # 7.7 10^3/uL (1.5-8.5); NEUTROPHILS % 72.2 % (36.0-66.0); PLATELET COUNT, AUTOMATED 270 10^3/uL (150-450); RED BLOOD COUNT 4.52 10^6/uL (4.00-5.40); WHITE BLOOD COUNT 10.6 10^3/uL (4.0-10.0)
[2023-08-09 11:02] LABS: ALBUMIN 4.3 G/DL (3.2-5.2); ALKALINE PHOSPHATASE 56 U/L (46-116); ALT/SGPT 17 U/L (7.0-40); AST/SGOT 11 U/L (<34); BILIRUBIN,TOTAL 0.8 MG/DL (0.3-1.2); BLOOD UREA NITROGEN 13 MG/DL (9-23); CALCIUM LEVEL 9.4 MG/DL (8.5-10.1); CARBON DIOXIDE LEVEL 29 MMOL/L (20-31); CHLORIDE LEVEL 108 MMOL/L (98-107); CREATININE FOR GFR 0.62 MG/DL (0.55-1.30); GLOMERULAR FILTRATION RATE > 60.0 (>60); GLUCOSE, FASTING 91 MG/DL (60-100); POTASSIUM SERUM 4.4 MMOL/L (3.5-5.1); SODIUM LEVEL 137 MMOL/L (136-145); TOTAL PROTEIN 6.7 G/DL (5.7-8.2)
[2023-08-09 11:04] LABS: FREE T4 1.14 NG/DL (0.89-1.76); THYROID STIMULATING HORMONE 2.344 uIU/ML (0.55-4.78)
== END ==
LOC: M LAB 09:28
PROVIDERS: ATTEND Physician Assistant
DX: Z13.29 Encounter for screening for other suspected endocrine disorder (principal); E55.9 Vitamin D deficiency, unspecified

== ENCOUNTER 2023-10-08 20:47 | Emergency (ER) | payer OTHER ==
[~2023-10-08] VITALS: Ht 154.9 cm; Wt 73.7 kg
[2023-10-08] MEDS: LIDOCAINE 1% MDV 20ML VIAL SC ONE (21:18)
[2023-10-08] MEDS: BOOSTRIX VACCINE (TETANUS/DIPHTH/ACEL. PERTUSSIS) 0.5ML SYR IM.IMMUN ONE (21:20)
[2023-10-08 22:13] VITALS: BP 117/70; TEMP 98; O2SAT 96
== END 2023-10-08 22:18 | disposition home or self-care (01) ==
LOC: M ED 20:47
DX: S61.217A Laceration without foreign body of left little finger without damage to nail, initial encounter (principal); Y92.9 Unspecified place or not applicable; Y93.9 Activity, unspecified; Y99.9 Unspecified external cause status; F41.9 Anxiety disorder, unspecified; F32.A Depression, unspecified; Z79.810 Long term (current) use of selective estrogen receptor modulators (SERMs); Z79.899 Other long term (current) drug therapy; Z23 Encounter for immunization

== ENCOUNTER → 2025-01-16 | Outpatient (CLI) | payer OTHER | LOC: M RAD 12:05 | PROVIDERS: ATTEND Physician Assistant | DX: S69.92XA Unspecified injury of left wrist, hand and finger(s), initial encounter (principal); X58.XXXA Exposure to other specified factors, initial encounter; Y92.9 Unspecified place or not applicable; Y93.9 Activity, unspecified; Y99.9 Unspecified external cause status ==